=== PATIENT | female | born 1980 | race Caucasian/White ===

== ENCOUNTER 2017-06-22 15:13 | Emergency (ER) | payer MEDICAID ==
[~2017-06-22] VITALS: Ht 165.1 cm; Wt 66.0 kg
[2017-06-22] MEDS ORDERED: KETOROLAC 30 MG/1 ML IM ONE (16:30)
[2017-06-22 16:39] LABS: BLOOD UREA NITROGEN 10 mg/dL (7-18)
[2017-06-22] MEDS ORDERED: KETOROLAC 30 MG/1 ML ONE (16:51)
[2017-06-22 18:14] VITALS: BP 104/60
== END 2017-06-22 18:16 | disposition home or self-care (01) ==
LOC: ED 18:10
DX: G89.29 Other chronic pain (principal); M54.6 Pain in thoracic spine; J45.909 Unspecified asthma, uncomplicated
CPT/HCPCS: 36415; 74000; 76770; 80048; 81001; 82040; 84703; 85025; 87086; 96372; J1885

== ENCOUNTER 2018-04-28 22:22 | Emergency (ER) | payer MEDICAID ==
[~2018-04-28] VITALS: Ht 165.1 cm; Wt 67.3 kg
[2018-04-28] MEDS ORDERED: KETOROLAC 30 MG/1 ML IVPush ONE (23:00)
[2018-04-28] MEDS ORDERED: HYDROmorphone 2 MG/ML, 1ML IVPush PRN (23:00)
[2018-04-28] MEDS ORDERED: SODIUM CHLORIDE FLUSH 10ML SYR IVF ONE (23:00)
[2018-04-28] MEDS ORDERED: ONDANSETRON ODT 4 MG PO ONE (23:00)
[2018-04-28] MEDS ORDERED: HYDROmorphone 2 MG/ML, 1ML ONE (23:06)
[2018-04-28] MEDS ORDERED: ONDANSETRON ODT 4 MG ONE (23:07)
[2018-04-28] MEDS ORDERED: KETOROLAC 30 MG/1 ML ONE (23:07)
[2018-04-28 23:08] LABS: MICROSCOPIC INDICATED
[2018-04-28 23:15] LABS: BASOPHILS # (AUTO) 0.04 x10^3/uL (0-0.1); BASOPHILS % (AUTO) 1 % (0-1); EOSINOPHILS # (AUTO) 0.06 x10^3/uL (0-0.4); EOSINOPHILS % (AUTO) 1 % (1-7); LYMPHOCYTES # (AUTO) 2.45 x10^3/uL (1-3.4); LYMPHOCYTES % (AUTO) 31 % (22-44); MD NO; MEAN CORPUSCULAR HEMOGLOBIN 30.3 pg (27.0-34.8); MEAN CORPUSCULAR HGB CONC 33.5 g/dL (32.4-35.8); MEAN CORPUSCULAR VOLUME 90.3 fL (80-100); MEAN PLATELET VOLUME 9.2 fL (7.4-10.4); MONOCYTES # (AUTO) 0.56 x10^3/uL (0.2-0.8); MONOCYTES % (AUTO) 7 % (2-9); NEUTROPHILS # (AUTO) 4.74 x10^3/uL (1.8-6.8); NEUTROPHILS % (AUTO) 60 % (42-75); PLATELET COUNT 286 x10^3/uL (130-400); RED BLOOD COUNT 4.84 x10^6/uL (3.82-5.3); RED CELL DISTRIBUTION WIDTH 13.3 % (9.6-15.2)
[2018-04-28 23:16] LABS: CULTURE INDICATED? NO
[2018-04-28 23:25] LABS: ALBUMIN 4.2 g/dL (3.4-5.0); ANION GAP 10 mmol/L (5-15); CALCIUM 9.4 mg/dL (8.5-10.1); CHLORIDE 110 mmol/L (98-107); CREATININE 0.94 mg/dL (0.55-1.02)
[2018-04-29 00:58] VITALS: BP 120/55
== END 2018-04-29 01:12 | disposition home or self-care (01) ==
LOC: ED 23:59
DX: R10.12 Left upper quadrant pain (principal); R11.2 Nausea with vomiting, unspecified; J45.909 Unspecified asthma, uncomplicated; Z87.442 Personal history of urinary calculi
CPT/HCPCS: 36415; 74176; 80048; 81001; 82040; 84703; 85025; 93005; 96374; 96375; 99285; J1170; J1885; Q0162

== ENCOUNTER 2019-07-14 20:43 | Emergency (ER) | payer MEDICAID ==
[~2019-07-14] VITALS: Ht 165.1 cm; Wt 62.0 kg
[2019-07-14 22:30] VITALS: BP 110/40
== END 2019-07-14 23:38 | disposition home or self-care (01) ==
LOC: ED 22:45
DX: N20.0 Calculus of kidney (principal); R10.32 Left lower quadrant pain; J45.909 Unspecified asthma, uncomplicated; R11.2 Nausea with vomiting, unspecified
CPT/HCPCS: 36415; 76770; 80048; 81001; 82040; 84703; 85025; 96361; 96374; 96375; 99284; J1170; J1885; J2405; J7030